=== PATIENT | male | born 1965 | race Caucasian/White ===

== ENCOUNTER 2016-10-01 10:00 | Day surgery (SDC) | payer OTHER ==
[~2016-10-01] VITALS: Ht 188 cm; Wt 154.0 kg
[~2016-10-01 10:00] MED LIST: 0.9% Sodium Chloride 1,000 ML IV SCH; ACET-171 PO; AMLO5TAB2 PO; DETROL LA4 M1 PO; DEXT1CAP3 PO; FINA5TAB9 PO; FURO-128 PO; FURO40TA4 PO; GEMF600T3 PO; IBUP800T28 PO; LISI40TA PO; LORA10CA PO; METO100T3 PO; MINE3.5O28 BOTH_EYES; NITR0.4T6 SL; RANI150C4 PO; Sodium Chloride LOK Flush 10 mL Syringe IV PRN; fentaNYL-PF 50 mCg/mL 2 mL Inj IVPUSH PRN
[2016-10-01] MEDS ORDERED: Propofol 10,000 mCg/mL 20 mL Inj ONE (10:01)
[2016-10-01 10:54] VITALS: BP 145/95; PULSE 88; RESP 14; O2SAT 96
--- NOTE | 2016-10-01 11:16 | PCM.HPANE ---
Patient Data Date of Service: Oct 01, 2016 (1113) Surgeon Admitting Provider: Attending Provider:Naun Cespedes MD Primary Care Physician:Other,Physician Other Provider:MD Stevie [facility] Reason for Visit Guaiac Positive Stools Ht/WT & BMI Height (Feet): 6 Height (Inches): 2 Weight (Kilograms): 154 Body Mass Index 43.00 Allergies Coded Allergies: Sulfa (Sulfonamide Antibiotics) (Verified Allergy, Unknown, 09/30/16) Past Anesthesia History Anesthesia History: Positive for:: Anesthesia Reactions (wakes up during), Denies:: Abnormal Airway, Difficult Intubation, Fam Anesthesia Reaction, Fam Malignant Hypertherm, Malignant Hyperthermia Diabetes History Hx Diabetes?: Yes Current Bedside Blood Glucose: 274 MRSA MRSA: No Medications Home Meds Incl Beta Daniel: Yes (metropol) Date Beta Daniel Taken: Sep 30, 2016 Time Beta Daniel Taken: 0800 Reported Medications Ranitidine 150 Mg Elmfkxt893 Mg PO DAILY Ref 0 09/30/16 Dextromethorphan HBr/Quinidine (Nuedexta 20-10 mg Capsule)1 Each Capsule1 Each PO BID 09/30/16 Nitroglycerin SL 0.4 Mg Tab.subl0.4 Mg SL DIRECTED PRN For Chest Pain 09/30/16 Metoprolol Tartrate 100 Mg Azqnmi042 Mg PO BID 30 Days Ref 0 09/30/16 Loratadine (Claritin)10 Mg Osgdyte75 Mg PO DAILY Ref 0 09/30/16 Lisinopril 40 Mg Nasnia95 Mg PO DAILY 30 Days Ref 0 09/30/16 Furosemide (Lasix)40 Mg Adoccw15 Mg PO Q2DAY 30 Days Ref 0 09/30/16 Ibuprofen 800 Mg Mtfjko969 Mg PO TID PRN For Pain Ref 0 09/30/16 Gemfibrozil 600 Mg Hhrees637 Mg PO BID #60 TABLET 09/30/16 Furosemide 40 Mg Fqdhcu74 Mg PO DAILY 09/30/16 Finasteride 5 Mg Tablet5 Mg PO DAILY 30 Days Ref 0 09/30/16 Tolterodine Tartrate ER (Detrol LA)4 Mg Capsule4 Mg PO DAILY 09/30/16 Mineral Oil/Petrolatum,White (Artificial Tears Eye Oint)3.5 Gm Tube1 Applic BOTH _EYES Q2HRS PRN For Eye Irritation 09/30/16 Amlodipine 5 Mg Tablet5 Mg PO DAILY Ref 0 09/30/16 Acetaminophen 500 Mg Hopbtw829 Mg PO Q8H PRN For Fever 09/30/16 History History of ENT Problems?: No HEENT History: Positive for:: Dysphagia Hearing Problem (mild hearing problems) Denies:: Abnormal Airway Difficult Intubation Denture Type: None Teeth Condition: Tooth Decay Hx of Heart Problems?: Yes Cardiovascular History: Positive for:: Hypertension Hx of Respiratory Problem?: Yes Respiratory History: Positive for:: Asthma Pneumonia (mild) Hx Neurologic Problems?: Yes Neurological History: Positive for:: CVA (right sided deficit October 2013) Hx of GI Problems?: Yes Other GI Pertinent History: postive FIT test kidnesy stones in the past Hx of Problems?: No Hx Musculoskeletal Problems?: Yes Hx Surgeries?: Yes (knee,tonsillecomy, lt ankle, right arm, finger) Hx Any Other Health Problems?: Yes Hx Diabetes: YesBedside Blood Glucose: 274 Hx Alcohol Use: Yes Stop/Bang Treated for Sleep Apnea?: Yes Do You Have a CPAP Machine?: Yes JOHN Risk Assessment: High Risk, =/>3 Yes Risk Assessment Category Category 1A: Patient has history of documented sleep apnea, and HAS NOT received any narcotic, sedative or anesthesia administration during this stay. Category 1B: Patient has history of documented sleep apnea, and HAS received any narcotic , sedative or anesthesia administration during this stay Category 2: Patient has SUSPECTED Obstructive Sleep Apnea, and HAS received any narcotic , sedative or anesthesia administration during this stay. Category 3: Patient has SUSPECTED Obstructive Sleep Apnea and HAS NOT received narcotic, sedative or anesthesia administration during this stay. Category 4: Outpatient in Procedural Areas with known sleep apnea or who screen positive for High Risk via the STOP/BANG questionnaire. Exam Exam Vital Signs Vital Signs Date Time Temp Pulse Resp B/P Pulse Ox O2 Delivery O2 Flow Rate FiO2 10/01/16 10:54 88 14 145/95 96 Room Air General Appearance: Alert, Oriented X3, Cooperative HEENT/AIRWAY: MP 2 Lungs: Clear to Auscultation Heart: Exam Unremarkable Meds/Labs/Diagnostics Bedside Blood Glucose: 274 Plan Impression Patient chart reviewed, patient interviewed and anesthestic plan with risks, benefits, and alternatives discussed, and informed consent obtained. NPO per Anesth. Guidelines: Yes ASA Physical Status: ASA4 Life Threatening Anesthetic Plan: MAC Bene/Risks/Altern/Consents: Yes HP Complete Prior to Induction: Yes Ho Sims MD Oct 01, 2016 11:16
[2016-10-01 11:49] VITALS: BP 121/83; PULSE 92; RESP 22; O2SAT 92
[2016-10-01 11:59] VITALS: BP 92/74; PULSE 89; RESP 16; O2SAT 95
[2016-10-01 12:09] VITALS: BP 155/107; PULSE 93; RESP 16; O2SAT 97
[2016-10-01] MEDS ORDERED: Lactated Ringer's 1,000 ML IV ONE (12:37)
--- NOTE | 2016-10-01 12:50 | PCM.ANEP1 ---
Post Anesthesia PACU Phase 1 Assessment Vital Signs Vital Signs Date Time Temp Pulse Resp B/P Pulse Ox O2 Delivery O2 Flow Rate FiO2 10/01/16 12:09 93 16 155/107 97 Room Air 10/01/16 11:59 89 16 92/74 95 Room Air 10/01/16 11:49 92 22 121/83 92 Room Air 10/01/16 10:54 88 14 145/95 96 Room Air Anesthetic Administered: GA Level of Alertness: Awake, talking VALENZUELA's with Equal Strength: Yes Pain: No Nausea or Vomiting: No CV Function & Hydration Stable: Yes Airway Device: none Oxygen Delivery: Room Air Lungs: Clear to Auscultation Dermatome Level: Full Sensation PACU Phase 2 Assessment Complications: No Follow up Care: No Patient Instructions Provided: N/A Ho Sims MD Oct 01, 2016 12:50
--- NOTE | 2016-10-02 07:16 | ENDO ---
[address] [address] ENDOSCOPY PROCEDURE PATIENT: FRANKLIN CEVALLOS : 1965 MR#: [id number] ADMIT: 10/01/2016 JOB ID: [id number] DATE OF SERVICE: 10/01/2016 TYPE OF OPERATIONS: Colonoscopy with hot snare polypectomy and colonoscopy with biopsy. PREOPERATIVE DIAGNOSIS(ES): Guaiac positive stools. POSTOPERATIVE DIAGNOSIS(ES): 1. Villareal diverticulosis seen in the sigmoid, descending, transverse and ascending colon. 2. A 2 cm transverse colon polyp, removed by hot snare polypectomy and hemoclip post polypectomy site. 3. One 2 mm ascending colon polyp, removed by cold biopsy forceps. 4. Two 3 mm sigmoid polyps, removed by cold biopsy forceps. ANESTHESIA: Monitored anesthesia care. COMPLICATIONS: None. BLOOD LOSS: Minimal. DESCRIPTION OF PROCEDURE: After risks and benefits explained to the patient, informed consent was obtained. After anesthesia administered, colonoscope was inserted from rectum to cecum. Mucosa carefully examined. Prep of the patient was fair. After the procedure was done, the scope withdrawn and the procedure terminated. FINDINGS: Upon inspection of the anus, no masses, hemorrhoids, ulcers or fissures that were seen throughout the entire examination. There is villareal diverticulosis seen in the sigmoid, descending, transverse and ascending colon. There was also a 2 cm transverse colon polyp removed by hot snare polypectomy, followed by hemoclip placed at the base. There was also a 2 mm ascending colon polyp removed by cold biopsy forceps. There were also two 3 mm sigmoid polyps removed by cold biopsy forceps. Retroflexion was normal. IMPRESSIONS: 1. Villareal diverticulosis moderate in the sigmoid, descending, transverse and ascending colon. 2. A 2 cm transverse colon polyp, removed by hot snare polypectomy, followed by hemoclip placed post polypectomy site. 3. A 2 mm ascending colon polyp, removed by cold biopsy forceps. 4. There were two 3 mm sigmoid polyps, removed with cold biopsy forceps. RECOMMENDATIONS: Await pathology results. If the 2 cm polyp is a tubular adenoma, which is most likely, repeat colonoscopy in three years.
--- NOTE | 2016-10-05 12:53 | PATH ---
SURGICAL PATHOLOGY Attending Physician:Naun Cespedes MD CASE STATUS: Signed Out PATIENT NAME: FRANKLIN CEVALLOS PID: [id number] : 1965 DATE COLLECTED:10/01/2016 22:16 SPECIMEN: 1: Colon, Biopsy 2: Colon, Biopsy 3: Colon, Biopsy CLINICAL HISTORY: POLYPS 1). ASCENDING COLON POLYP X1 2). TRANSVERSE COLON POLYP X1 3). SIGMOID COLON POLYPS X2 FINAL DIAGNOSIS: 1. Ascending Colon Polyp, Biopsy: Tubular adenoma, negative for high-grade dysplasia. 2. Transverse Colon Polyp, Biopsy: Tubular adenoma; negative for high-grade dysplasia. 3. Sigmoid Colon Polyps, Biopsies: Portions of tubular adenoma x2; negative for high-grade dysplasia. ICD10: K63.5 GROSS DESCRIPTION: The specimen is received in three formalin filled containers labeled with the patient's name. 1). The specimen is sublabeled "ascending colon polyp" and consists of a 0.3 x 0.2 x 0.2 CM portion of tissue which is entirely submitted in cassette 1A. 2). The specimen is sublabeled "transverse colon polyp" and consists of a 1.6 x 1.0 x 1.3 CM portion of tissue. The specimen is sectioned into 5 pieces and entirely submitted in cassette 2A. 3). The specimen is sublabeled "sigmoid colon polyps" and consists of 2 tiny portions of tissue which aggregate to 0.3 x 0.3 x 0.2 CM. The specimen is entirely submitted in cassette 3A. 10/01/2016 [facility] ICD-9 CODES: CPT CODES: 1: 06577 2: 68962 3: 10611 Electronically Signed Out Sagrario Nguyen MD [facility] Pathology [facility] [address], [place] [address] Technical component performed at [facility], [facility] [address], [place], [address]
== END 2016-10-01 23:59 | disposition home or self-care (01) ==
LOC: END 10:00
PROVIDERS: ATTEND Internal Medicine Gastroenterology
DX: D12.2 Benign neoplasm of ascending colon (principal); D12.3 Benign neoplasm of transverse colon; D12.5 Benign neoplasm of sigmoid colon; K57.30 Diverticulosis of large intestine without perforation or abscess without bleeding; G47.33 Obstructive sleep apnea (adult) (pediatric); Z86.73 Personal history of transient ischemic attack (TIA), and cerebral infarction without residual deficits; Z99.3 Dependence on wheelchair
CPT/HCPCS: 45380; 45385; 88305; J2250; J7120